=== PATIENT | female | born 1985 | race African-American/Black ===

== ENCOUNTER 2016-09-02 14:36 | Emergency (ER) | payer OTHER ==
[~2016-09-02] VITALS: Ht 162.6 cm; Wt 56.7 kg
[~2016-09-02 14:36] MED LIST: PRED50TA PO; TRIA15CR3 TP
[2016-09-02 14:40] VITALS: BP 120/63
--- NOTE | 2016-09-02 15:03 | PHYS DOC ---
Past Medical History Past Medical History: No Pertinent History Past Surgical History: Tubal ligation Alcohol Use: None Drug Use: None Adult General Chief Complaint Chief Complaint: PAIN ON URINATION HPI HPI Patient is a 31 year old -[place] female who presents with pain after urination and itching in her genital area. She states is all started yesterday. She is not concerned about sexual transmitted infection. She denies any vaginal discharge or bleeding. Review of Systems Review of Systems Constitutional: Denies fever or chills [] Eyes: Denies change in visual acuity, redness, or eye pain [] HENT: Denies nasal congestion or sore throat [] Respiratory: Denies cough or shortness of breath [] Cardiovascular: No additional information not addressed in HPI [] GI: Denies abdominal pain, nausea, vomiting, bloody stools or diarrhea [] : Positive for dysuria. Musculoskeletal: Denies back pain or joint pain [] Integument: Denies rash or skin lesions [] Neurologic: Denies headache, focal weakness or sensory changes [] Endocrine: Denies polyuria or polydipsia [] Allergies Allergies Allergies Coded Allergies Type Severity Reaction Last Updated Verified No Known Drug Allergies 08/20/15 No Physical Exam Physical Exam Constitutional: Well developed, well nourished, no acute distress, non-toxic appearance. [] HENT: Normocephalic, atraumatic, bilateral external ears normal, oropharynx moist, no oral exudates, nose normal. [] Eyes: PERRLA, EOMI, conjunctiva normal, no discharge. [] Neck: Normal range of motion, no tenderness, supple, no stridor. [] Cardiovascular:Heart rate regular rhythm, no murmur [] Lungs & Thorax: Bilateral breath sounds clear to auscultation [] Abdomen/pelvic: Bowel sounds normal, soft, no tenderness, no masses, no pulsatile masses. Normal external genitalia, no lesions seen, on speculum exam mild white discharge, no bleeding no cervical motion tenderness noted on manual exam Skin: Warm, dry, no erythema, no rash. [] Back: No tenderness, no CVA tenderness. [] Extremities: No tenderness, no cyanosis, no clubbing, ROM intact, no edema. [] Neurologic: Alert and oriented X 3, normal motor function, normal sensory function, no focal deficits noted. [] Psychologic: Affect normal, judgement normal, mood normal. [] Current Patient Data Vital Signs Vital Signs Date Time Temp Pulse Resp B/P (MAP) Pulse Ox O2 Delivery O2 Flow Rate FiO2 09/02/16 14:40 98.4 86 16 120/63 (82) 97 Room Air 98.4 Lab Values Laboratory Tests Test 09/02/16 14:45 Urine Collection Type Unknown Urine Color Yellow Urine Clarity Cloudy Urine pH 8.0 Urine Specific [place] 1.020 Urine Protein 100 mg/dL (NEG-TRACE) Urine Glucose (UA) Negative mg/dL (NEG) Urine Ketones (Stick) Negative mg/dL (NEG) Urine Blood Large (NEG) Urine Nitrite Negative (NEG) Urine Bilirubin Negative (NEG) Urine Urobilinogen Dipstick 1.0 mg/dL (0.2 mg/dL) Urine Leukocyte Esterase Large (NEG) Urine RBC >40 /HPF (0-2) Urine WBC Tntc /HPF (0-4) Urine Bacteria Moderate /HPF (0-FEW) Urine Test Negative (NEG) Microbiology 09/02/16 Wet Prep - Final, Complete EKG EKG [] Radiology/Procedures Radiology/Procedures [] Course & Med Decision Making Course & Med Decision Making Pertinent Labs and Imaging studies reviewed. (See chart for details) RUN DATE: 09/02/16 PAGE 1 RUN TIME: 1558 [facility] [address] [place] [address] Riccardo Shepard M.D., Automotive [employer]ic PATIENT: DEBRA DESAI ACCT: [id number] LOC: [facility] U : [id number] AGE/SX: 31/F ROOM: REG : 09/02/[address]: GUILLAUME IBRAHIM MD : 1985 BED: DIS : STATUS: REG ER TLOC: SPEC #: [id number] JUSTIN: 09/02/16 STATUS: COMP REQ #: [id number] RECD: 09/02/[address] [facility] DR: GUILLAUME IBRAHIM MD SOURCE: VAGINAL ENTR: 09/02/[address] [facility] [address]: DEEPAK GUZMAN [facility]: ORDERED: WET PREP COMMENTS: Has specimen been collected/obtained? Y Procedure Result WET PREP Final YEAST NONE SEEN TRICHOMONAS NONE SEEN CLUE CELLS NONE SEEN She has a UTI based on labs. GC chlamydia pending at this time. Wet mount otherwise negative. We'll discharge on Bactrim for 3 days. Return precautions given. She is agreeable to the plan and being discharged in stable condition this time. She's been encouraged to use Azo [id number] for discomfort. END OF REPORT Dragon Disclaimer Dragon Disclaimer This electronic medical record was generated, in whole or in part, using a voice recognition dictation system. Departure Departure Impression: Primary Impression: UTI (urinary tract infection) Disposition: 01 HOME, SELF-CARE Condition: STABLE Referrals: NO PCP (PCP) Patient Instructions: Urinary Tract Infection Additional Instructions: You have a bladder infection when he take antibiotics for the next 3 days. Return ER if you have fevers, pain, or other concerns. You can purchase Azo over -the-counter to use for pain. Scripts Sulfamethoxazole/Trimethoprim (BACTRIM DS TABLET) 1 Each Tablet 1 EACH PO BID for 3 Days, #6 TAB Prov: GUILLAUME IBRAHIM MD 09/02/16 Problem Qualifiers Primary Impression: UTI (urinary tract infection) Urinary tract infection type: acute cystitis Hematuria presence: without hematuria Qualified Codes: N30.00 - Acute cystitis without hematuria GUILLAUME IBRAHIM MD Sep 02, 2016 15:03
[2016-09-02 15:09] LABS: BILIRUBIN,URINE NEGATIVE (NEG); GLUCOSE,URINE NEGATIVE (NEG); NITRITE,URINE NEGATIVE (NEG); PROTEIN,URINE 100 mg/dL (NEG-TRACE)
[2016-09-02 15:15] LABS: NEG OBC UR NEG; POS OBC UR POS
[2016-09-02 15:35] LABS: BACTERIA,URINE MODERATE /HPF (0-FEW); RBC,URINE >40 /HPF (0-2); WBC,URINE TNTC /HPF (0-4)
[2016-09-02] MEDS ORDERED: SULF1TAB24 PO (16:31)
== END 2016-09-02 16:58 | disposition home or self-care (01) ==
LOC: ER 14:36
DX: N30.00 Acute cystitis without hematuria (principal); Z98.51 Tubal ligation status
CPT/HCPCS: 81001; 81025; 87086; 87491; 87591; 99284; Q0111; 87186